=== PATIENT | female | born 1990 | race Caucasian/White ===

== ENCOUNTER 2019-05-04 00:04 | Emergency (ER) | payer SELFPAY ==
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
== END 2019-05-04 00:24 | disposition left against medical advice (07) ==
LOC: JP.ED 00:04
DX: Z53.21 Procedure and treatment not carried out due to patient leaving prior to being seen by health care provider (principal)